=== PATIENT | female | born 1965 | race Caucasian/White ===

== ENCOUNTER 2019-05-26 00:24 | Inpatient (IN) | payer OTHER ==
--- NOTE | 2019-05-26 01:47 | HP ---
CHIEF COMPLAINT: Fever, cough, and shortness of breath. HISTORY OF PRESENT ILLNESS: Ms. Rene is a 53-year-old female, who with past medical history of pneumonia, ? congestive heart failure, back pain, and herpes, who is being transferred from [facility] after she presented with cough, shortness of breath, and fever for the last 2 days. Also, the patient has been having sore throat. The patient had a fever of 103.1 and tachycardic. Initially, her oxygen saturation was 92%. The patient denies any COVID exposure or travel. The patient has been isolating except for trips for the grocery. Initial workup, chest x-ray was unremarkable. But, given her low oxygen saturation and shortness of breath and respiratory symptoms, the patient is being tested for viral infection including COVID. The patient is being sent here for admission and further management. PAST MEDICAL HISTORY: As mentioned above in history of present illness. PAST SURGICAL HISTORY: 1. Tubal ligation. 2. Right wrist surgery. PAST PSYCHIATRIC HISTORY: Anxiety. SOCIAL HISTORY: The patient drinks alcohol socially. Denies drug use. No smoking history. ALLERGIES: ALLERGIC TO: 1. TALWIN. 2. TORADOL. 3. TRAMADOL. HOME MEDICATIONS: Please see home medication reconciliation form for updated medications. REVIEW OF SYSTEMS: Review of 14-systems negative except what is mentioned in history of present illness. FAMILY HISTORY: Reviewed and noncontributory. PHYSICAL EXAMINATION: GENERAL: The patient is awake, alert, and in mild distress. VITAL SIGNS: Temperature maximum was 103.1, current temperature is 99.2, blood pressure 112/68, pulse is 61, respiratory rate is 18, and oxygen saturations 98% on room air. HEAD AND NECK: Normocephalic and atraumatic. Neck is supple. No JVD. CHEST: Decreased air entry bilaterally. HEART: S1 and S2. Regular. ABDOMEN: Soft and nontender. Bowel sounds present. NEUROLOGIC: Awake, alert, and moving extremities. PSYCH: Unable to assess. EXTREMITIES: No clubbing. No cyanosis. GENITOURINARY: No suprapubic tenderness. No flank tenderness. LABORATORY DATA: WBC 9.9, hemoglobin 13, and platelets 225. Sodium 138, potassium 4.2, BUN is 11, creatinine 0.8, and glucose 109. Troponin less than 0.01. Urinalysis is not done. Chest x-ray, no acute finding. ASSESSMENT: 1. Suspected COVID-2019 infection. 2. Fever. 3. Shortness of breath. 4. Congestive heart failure history ? PLAN: 1. Admit. 2. Septic workup including blood cultures and viral panel including COVID testing was done. 3. IV antibiotics, empiric for now. Continue with IV ceftriaxone and Rocephin. 4. Isolation precautions, droplet, and contact. 5. Reconcile home medications. 6. DVT prophylaxis as appropriate. 7. Expected length of stay, 2 midnights or more. Job ID: [id number]
[2019-05-26] MEDS: Azithromycin 500 MG in Sodium Chloride 0.9% 250 ML 250 ML IVPB SCH (02:35)
[2019-05-26] MEDS: cefTRIAXone\\ROCEPHIN 1 GM in Sodium Chloride 0.9% 100 ML IVPB SCH (02:35)
[2019-05-26 03:11] VITALS: BMI 30.2
[2019-05-26] MEDS ORDERED: tiZANidine HCl 4 MG TAB PO SCH (03:30)
[2019-05-26] MEDS ORDERED: traZODone HCl 50 MG TAB PO SCH ×2 (03:30→21:00)
[2019-05-26] MEDS: Famotidine 20 MG TAB PO SCH ×2 (08:00→21:03)
[2019-05-26] MEDS: Acetaminophen 325 MG TAB PO PRN ×2 (08:00→21:16)
[2019-05-26] MEDS: Heparin 5,000 UNITS/ML VIAL SC SCH ×2 (08:00→21:04)
--- NOTE | 2019-05-26 13:40 | PDOC.HOSPP ---
- Subjective Encounter Date: 05/26/19 Encounter Time: 12:00 Subjective: c/o cough with sob is ambulating in room and eating well no fever after arrival on floor had temp of 103, spo2 of 92% at home - Objective Vital Signs & Weight: Vital Signs (12 hours) Temp Pulse Resp BP Pulse Ox 05/26/19 09:14 97.0 F L 92 18 126/76 94 L 05/26/19 08:00 94 L 05/26/19 03:35 95 05/26/19 03:34 94 18 95 05/26/19 02:10 97.8 F 102 H 20 130/78 93 L Weight Weight 175 lb 14.4 oz Hospitalist ROS - Medication Medications: Active Medications Generic Name Dose Route Start Last Admin Trade Name Freq PRN Reason Stop Dose Admin Acetaminophen 650 mg 05/26/19 00:52 05/26/19 08:00 Tylenol PO 650 mg Q4H PRN Administration Headache/Fever/Mild Pain (1-3) Famotidine 20 mg 05/26/19 09:00 05/26/19 08:00 Pepcid PO 20 mg BID LILY Administration Heparin Sodium (Porcine) 5,000 units 05/26/19 09:00 05/26/19 08:00 Heparin SC 5,000 units BID LILY Administration Azithromycin 500 mg/ Sodium 250 mls @ 250 mls/hr 05/26/19 03:00 05/26/19 02: 35 Chloride IVPB Not Given Q24HR LILY Ceftriaxone Sodium 1 gm/ 100 mls @ 200 mls/hr 05/26/19 02:00 05/26/19 02:35 Sodium Chloride IVPB Not Given Q24HR LILY Sertraline HCl 100 mg 05/26/19 09:00 05/26/19 08:29 Zoloft PO 100 mg DAILY LILY Administration - Exam General Appearance: awake alert Eye: PERRL, anicteric sclera ENT: no oropharyngeal lesions, moist mucosa Neck: supple, symmetric Heart: no murmur, no gallops Respiratory: no wheezes, no rales, rhonchi Gastrointestinal: soft, non-tender, non-distended, normal bowel sounds Extremities: no cyanosis, no edema Neurological: cranial nerve grossly intact, no focal deficits Psychiatric: normal affect, A&O x 3 Hosp A/P (1) Fever Code(s): R50.9 - FEVER, UNSPECIFIED Status: Acute Qualifiers: Fever type: unspecified Qualified Code(s): R50.9 - Fever, unspecified (2) Acute bronchitis Code(s): J20.9 - ACUTE BRONCHITIS, UNSPECIFIED Status: Acute Qualifiers: Bronchitis organism: unspecified organism Qualified Code(s): J20.9 - Acute bronchitis, unspecified (3) h/o tobacco abuse Status: Chronic (4) Chronic pain syndrome Code(s): G89.4 - CHRONIC PAIN SYNDROME Status: Chronic (5) Obesity (BMI 30.0-34.9) Code(s): E66.9 - OBESITY, UNSPECIFIED Status: Chronic - Plan is awaiting covid 19 test results hemostable I gave her the option of going home and self quarantine until she gets her results, but pt wants to stay until results are back she has small grand kids at home and is scared to go home until results are back she smoked heavy almost 2 packs for 35yrs and has quit, last pna was 1 yr back is on ceftriaxone and zithromax May get CT chest wo contrast if her covid is +ve
[2019-05-26] MEDS: tiZANidine HCl 4 MG TAB PO SCH ×2 (14:17→21:03)
[2019-05-26] MEDS: Gabapentin 300 MG CAP PO SCH ×2 (14:17→21:03)
[2019-05-26] MEDS: Acetaminophen/Codeine 30-300mg Tablet PO PRN (23:15)
[2019-05-27] MEDS: cefTRIAXone\\ROCEPHIN 1 GM in Sodium Chloride 0.9% 100 ML IVPB SCH (02:18)
[2019-05-27] MEDS: Azithromycin 500 MG in Sodium Chloride 0.9% 250 ML 250 ML IVPB SCH (02:51)
[2019-05-27] MEDS ORDERED: tiZANidine HCl 4 MG TAB PO SCH ×2 (06:00→15:00)
[2019-05-27] MEDS: Gabapentin 300 MG CAP PO SCH (06:05)
[2019-05-27] MEDS ORDERED: Furosemide 20 MG TAB PO SCH (09:00)
[2019-05-27] MEDS ORDERED: Fluticasone Propionate Nasal Spray 16 gm Bottle NASAL SCH (09:00)
[2019-05-27] MEDS: Famotidine 20 MG TAB PO SCH (09:10)
[2019-05-27] MEDS: Heparin 5,000 UNITS/ML VIAL SC SCH (09:10)
[2019-05-27] MEDS: Acetaminophen/Codeine 30-300mg Tablet PO PRN (09:17)
[2019-05-27 11:46] VITALS: BP 106/64; TEMP 98.3
[2019-05-27] MEDS ORDERED: Gabapentin 300 MG CAP PO SCH (15:00)
[2019-05-27] MEDS: Acetaminophen 325 MG TAB PO PRN (15:27)
[2019-05-27] MEDS ORDERED: Acyclovir 400 mg Tablet PO SCH (21:00)
[2019-05-28] MEDS ORDERED: Azithromycin 500 MG in Sodium Chloride 0.9% 250 ML 250 ML IVPB SCH (09:00)
[2019-05-28] MEDS ORDERED: cefTRIAXone\\ROCEPHIN 1 GM in Sodium Chloride 0.9% 100 ML IVPB SCH (09:00)
--- NOTE | 2019-05-28 11:27 | DIS ---
DATE OF ADMISSION: 05/26/2019 DATE OF DISCHARGE: 05/27/2019 HISTORY OF PRESENT ILLNESS AND HOSPITAL COURSE: The patient is a 53-year-old female with past medical history of congestive heart failure, back pain, pneumonia, and herpes, who was transferred to our hospital from [facility] after she presented with cough, shortness of breath, and fever for 2 days prior to admission. The patient was also complaining of sore throat. A COVID-19 coronavirus test was sent and the patient was transferred to our facility, where her symptoms remained stable. The patient did not exhibit any severe hypoxia or respiratory failure symptoms. The decision was made to discharge the patient home and quarantine until her coronavirus test result is back. DISCHARGE DIAGNOSES: 1. Suspected COVID-19 infection. 2. Fever. 3. Shortness of breath. 4. History of congestive heart failure. DISCHARGE MEDICATIONS: 1. Tylenol No. 3 one tablet q.6 hours as needed for pain. 2. Acyclovir 400 mg orally nightly. 3. Fluticasone nasal spray one spray each naris twice daily. 4. Furosemide 20 mg orally daily. 5. Gabapentin 300 mg orally every 8 hours. 6. Sertraline 100 mg orally daily. 7. Tizanidine one capsule 4 mg orally every 8 hours. 8. Trazodone 100 mg orally nightly. 9. Ibuprofen 800 mg orally every 8 hours. 10. Ativan 1 mg orally nightly as needed. 11. Azithromycin 500 mg orally for 5 days. Job ID: [id number]
--- NOTE | 2019-05-31 10:39 | PQF ---
YVES AMBROCIO MORGAN JARVIS [id number] CLINICAL DOCUMENTATION IMPROVEMENT CLARIFICATION FORM: ICD-10 Updated PLEASE DO AN ADDENDUM TO THE PROGRESS NOTE WITH ANY DOCUMENTATION UPDATES OR ADDITIONS AND CARRY THROUGH TO DC SUMMARY. THANK YOU. DATE: 05/31/2019 ATTN: Dr. Jarvis Please exercise your independent, professional judgment in responding to the clarification form. Clinical indicators are provided on the bottom of this form for your review Please check appropriate box(es): [ ] Sepsis due to (please specify): [ ] Viral Pneumonia [ ] Simple Pneumonia [ > ] Pneumonia of unknown etiology [ ] Localized infection without sepsis (please specify): [ ] Viral Pneumonia [ ] Simple Pneumonia [ ] Pneumonia of unknown etiology [ ] SIRS due to non-infectious process (please specify): [ ] Acute Bronchitis [ ] Other: [ ] Other diagnosis [ ] Unable to determine For continuity of documentation, please document condition throughout progress notes and discharge summary. Thank You. CLINICAL INDICATORS - SIGNS / SYMPTOMS / LABS / RESULTS AND LOCATION IN MR * LAB: WBC 05/24 9.9 * ED 05/25: * Present to the ED for evaluation of cough, fever, SOB over last 3 days. * COVID testing sent off and treating empirically for PNA despite negative CXR. * Initial 92% on RA but now 98% on NC. * Diagnosis Final Primary: Pneumonia Additional: COVID-19 rule out, Hypoxia, Sepsis * H&P 05/25 ([facility]): * The patient had a fever of 103.1 and tachycardic. * Given her low oxygen saturation and shortness of breath and respiratory symptoms, the patient is being tested for viral infection including COVID. * Serology ([facility]): COVID-19 Result Not Detected (collected 05/25/190) RISK FACTORS / RESULTS AND LOCATION IN MR * ED 05/25: Diagnosis Final Primary: Pneumonia * PN 05/26 ([facility]): Acute bronchitis TREATMENTS / RESULTS AND LOCATION IN MR * [facility] * Septic Workup including blood cultures and viral panel including COVID testing was done. * IV antibiotics, empiric for now. Continue with IV ceftriaxone and Rocephin. Thank you, Lisy (This form is maintained as a part of the permanent medical record) 2015 [employer]. All Rights Reserved Lisy Lopez RN, CDS [email or web address] cell phone: [phone] MICHAEL
== END 2019-05-27 16:08 | disposition home or self-care (01) | DRG 195 ==
LOC: ERS 00:24 → T4-A 01:00
PROVIDERS: ADMIT Internal Medicine; ATTEND Internal Medicine
PROC: 8E0ZXY6 Isolation (ICD-10-PCS; principal; 2019-05-26)
DX: J18.9 Pneumonia, unspecified organism (principal); Z20.828 Contact with and (suspected) exposure to other viral communicable diseases; I50.9 Heart failure, unspecified; F41.9 Anxiety disorder, unspecified; G89.4 Chronic pain syndrome; E66.9 Obesity, unspecified; Z87.01 Personal history of pneumonia (recurrent); Z87.898 Personal history of other specified conditions; Z88.8 Allergy status to other drugs, medicaments and biological substances; Z68.30 Body mass index [BMI] 30.0-30.9, adult; Z87.891 Personal history of nicotine dependence
CPT/HCPCS: 87633; 99285; J0456; J0696; J1644; J3490; J7050

== ENCOUNTER 2020-03-19 07:46 | Outpatient (CLI) | payer OTHER | END 2020-03-19 07:47 | disposition home or self-care (01) | LOC: BICULT 07:46 | PROVIDERS: ATTEND Specialist | DX: R10.13 Epigastric pain (principal); K76.89 Other specified diseases of liver | CPT/HCPCS: 76705 ==

== ENCOUNTER 2020-11-19 13:58 | Outpatient (CLI) | payer OTHER | END 2020-11-19 13:59 | disposition home or self-care (01) | LOC: BICMAMMO 13:58 | PROVIDERS: ATTEND Family Medicine | DX: Z12.31 Encounter for screening mammogram for malignant neoplasm of breast (principal) | CPT/HCPCS: 77063; 77067 ==

== ENCOUNTER 2021-11-16 14:17 | Outpatient (CLI) | payer BC | END 2021-11-16 14:18 | disposition home or self-care (01) | LOC: CTENTCT 14:17 | PROVIDERS: ATTEND Otolaryngology Plastic Surgery within the Head & Neck | DX: J32.9 Chronic sinusitis, unspecified (principal) | CPT/HCPCS: 70486 ==

== ENCOUNTER 2022-05-12 09:54 | Outpatient (CLI) | payer BC, OTHER | END 2022-05-12 09:55 | disposition home or self-care (01) | LOC: TBSIIMAG 09:54 | PROVIDERS: ATTEND Neurological Surgery | DX: S32.010A Wedge compression fracture of first lumbar vertebra, initial encounter for closed fracture (principal); S22.060A Wedge compression fracture of T7-T8 vertebra, initial encounter for closed fracture; S22.069A Unspecified fracture of T7-T8 vertebra, initial encounter for closed fracture | CPT/HCPCS: 72070; 72100 ==